=== PATIENT | female | born 1950 | race Caucasian/White ===

== ENCOUNTER 2020-06-18 14:16 | Inpatient (IN) | payer OTHER, BC ==
[2020-06-18 16:53] VITALS: BMI 23.9
[2020-06-18] MEDS ORDERED: POLYETHYL GLY 3350 17 GM/DOSE PO PRN (17:00)
[2020-06-18] MEDS: NACHLORIDE 0.45% 1,000 ML IV SCH (17:00)
[2020-06-18] MEDS ORDERED: ONDANSETRON 4 MG (ODT) TAB PO PRN (17:00)
[2020-06-18] MEDS ORDERED: LOPERAMIDE HCL 2 MG CAPSULE PO PRN (17:00)
[2020-06-18] MEDS ORDERED: ACETAMINOPHEN 325 MG TABLET PO PRN (17:00)
[2020-06-18 18:20] LABS: Absolute Lymphocytes (CBC) 0.7 K/uL (0.7-4.9); Basophils % 0.3 % (0-1.3); Hematocrit 37.3 % (36.0-45.0); Lymphocytes % 10.6 % (15.3-44.8); MPV 7.7 fL (7.6-11.3); RBC Red Blood Cell Count 3.94 M/uL (3.86-4.86)
[2020-06-18] MEDS: METRONIDAZOLE 500mg IVPB 500 MG/100 ML BAG IV SCH (18:22)
[2020-06-18 18:37] LABS: Albumin 3.5 g/dL (3.4-5.0); Bilirubin Direct 0.2 mg/dL (0-0.2); Bilirubin Total 0.6 mg/dL (0.2-1.0); Magnesium 1.9 mg/dL (1.8-2.4); Potassium 3.6 mmol/L (3.5-5.1); Protein, Total 7.3 g/dL (6.4-8.2)
[2020-06-18 18:59] LABS: Phosphorus 2.9 mg/dL (2.5-4.9); Thyroid Stimulating Hormone 1.04 uIU/mL (0.360-3.740)
--- NOTE | 2020-06-18 20:38 | RAD REPORT ---
EXAM DESCRIPTION: CTAbdomen Pelvis W Contrast - 06/18/2020 8:18 pm CLINICAL HISTORY: Abdominal pain. abdominal pain COMPARISON: No comparisons TECHNIQUE: Biphasic CT imaging of the abdomen and pelvis was performed with 100 ml non-ionic IV cont rast. All CT scans are performed using dose optimization technique as appropriate and may include automated exposure control or mA/KV adjustment according to patient size. FINDINGS: Mild linear subsegmental atelectasis is present in the left lung base. The liver, spleen, pancreas, adrenal glands and kidneys are within normal limits. No bowel obstruction, free air, free fluid or abscess. The appendix is normal. No evidence of signi ficant lymphadenopathy. Moderate lumbar degenerative changes. Significant compression fracture affects L1 with vertebroplasty cement present. This does cause moderate central canal narrowing. Small right inguinal hernia is pre sent containing fluid. Moderate fat containing left inguinal hernia. IMPRESSION: No acute intra-abdominal or pelvic finding. Moderate fluid and fat containing right inguinal hernia.
[2020-06-18] MEDS: CIPROFLOXACIN 400 MG/200 ML IVPB IV SCH (20:39)
--- NOTE | 2020-06-18 20:39 | RAD REPORT ---
EXAM DESCRIPTION: RAD - Chest Pa And Lat (2 Views) - 06/18/2020 8:28 pm CLINICAL HISTORY: abdomen pain Chest pain. COMPARISON: No comparisons FINDINGS: Mild interstitial pulmonary edema is seen. The heart is mildly to moderately enlarged in s ize. No displaced fractures. IMPRESSION: Mild CHF.
[2020-06-18] MEDS ORDERED: MECLIZINE HCL 12.5 MG TAB PO PRN (21:31)
[2020-06-19] MEDS: METRONIDAZOLE 500mg IVPB 500 MG/100 ML BAG IV SCH ×3 (01:03→18:00)
[2020-06-19] MEDS: HYDROMORPHONE HCL 1 MG/ML INJ IV PRN ×2 (07:15→14:33)
[2020-06-19] MEDS: ONDANSETRON 4 MG/2 ML VIAL IV PRN ×3 (07:54→21:35)
[2020-06-19] MEDS: INDAPAMIDE 1.25 MG TAB PO SCH (09:00)
[2020-06-19] MEDS: ENOXAPARIN 40 MG/0.4 ML SQ SCH (09:00)
[2020-06-19] MEDS: CIPROFLOXACIN 400 MG/200 ML IVPB IV SCH ×2 (09:04→21:36)
[2020-06-19] MEDS: ROSUVASTATIN 10 MG TAB PO SCH (09:04)
[2020-06-19] MEDS: PROPRANOLOL HCL 10 MG TAB PO SCH ×2 (09:05→21:34)
--- NOTE | 2020-06-19 11:33 | ECHO ---
HEIGHT: 5 ft 3 in WEIGHT: 135 lb 0 oz DATE OF STUDY: 06/19/[address]: Graham Bauman MD 2-DIMENSIONAL: YES M.MODE: YES DOPPLER: YES COLOR FLOW: YES TDS: NO PORTABLE: NO DEFINITY: NO BUBBLE STUDY: NO DIAGNOSIS: PAIN CARDIAC HISTORY: CATHERIZATION: NO SURGERY: NO PROSTHETIC VALVE: NO PACEMAKER: NO MEASUREMENTS (cm) DIASTOLIC (NORMALS) SYSTOLIC (NORMALS) IVSd 0.9 (0.6-1.2) LA Diam 2.3 (1.9-4.0) LVEF 63% LVIDd 3.7 (3.5-5.7) LVIDs 2.4 (2.0-3.5) %FS 34% LVPWd 0.9 (0.6-1.2) Ao Diam 2.8 (2.0-3.7) 2 DIMENSIONAL ASSESSMENT: RIGHT ATRIUM: NORMAL LEFT ATRIUM: NORMAL RIGHT VENTRICLE: NORMAL LEFT VENTRICLE: NORMAL TRICUSPID VALVE: NORMAL MITRAL VALVE: NORMAL PULMONIC VALVE: NORMAL AORTIC VALVE: SCLEROSIS PERICARDIAL EFFUSION: NONE AORTIC ROOT: NORMAL LEFT VENTRICULAR WALL MOTION: NORMAL DOPPLER/COLOR FLOW: MILD AORTIC AND TRICUSPID REGURGITATION. COMMENTS: NORMAL LEFT VENTRICULAR SIZE AND FUNCTION. AORITC SCLEROSIS WITH NO STENOSIS. MILD AORTIC AND TRICUSPID REGURGITATION. TECHNOLOGIST: Nehemias HANNA
[2020-06-19] MEDS: NACHLORIDE 0.45% 1,000 ML IV SCH ×2 (13:00→21:43)
--- NOTE | 2020-06-19 15:35 | CON ---
Date of Consultation: 06/19/2020 History Of Present Illness: This is the case of a 70-year-old patient, who comes to us with abdomina l pain. I talked to the family, who is the power of insole presser, who is present and she claimed this is happening every day. She holds right lower quadrant and right inguinal groin region, trying to push and then this repeated every week. At this time, she was worse. She was admitted to the hospital and a surgical consult was obtained. She denies any dysuria, hematuria, hematochezia, sara na. Denies any recent traveling out of the country. Denies any family member sick at home. She tomas s not recall her previous colonoscopy, although she was advised to have it done. Review of Systems: Ten points otherwise unremarkable. She is still having right lower quadrant pain in the area of the right groin region. Allergies: NONE. Social History: She does not smoke. She does not drink alcohol. Family History: Noncontributory. Medications: Reviewed. Physical Examination: General: The patient is awake, alert. HEENT: Pupils are equal and reactive. Anicteric. Neck: Supple. Chest: Clear. Abdomen: Soft and depressible. She has right lower quadrant and inguinal pain. This is what we saw the findings on the CAT scan with the inflammation in the right inguinal hernia. Extremities: Good capillary refill. Imaging: CAT scan of the abdomen and pelvis interpreted by Dr. Salcedo as right inguinal hernia is pre sent, containing fluid, moderate amount of fat present in both hernias. Assessment: This is a 70-year-old patient with right groin pain. She complained what is supposed to be a hernia in that region and at this time has swelling, tenderness in that region. There is some fluid in that region. I believe she has been probably pushing up in and out intestines. Right now, only not there, but the patient is still having some nausea. After discussing pros and co ns with the patient and power of insole presser since the pain is there and happening every day and is wors e at this time, they preferred to have the right inguinal hernia repair. The left side is going to b e repaired electively. The right side is the one causing trouble at this moment, so we are going to do open repair of incarcerated right inguinal hernia with possible mesh with benefits, alternatives, and risks include, but not limited to infection, bleeding, damage to adjacent structures, anesthesia complication, recurrence, ND and even . She also understands this may not relieve any symptoms. She might need more than one surgical intervention. She understands and the power of insole presser unde rstands pros and cons of use of mesh. The patient is trying to eat at this moment, although she just became nauseous. I asked her to be n.p.o. and we are going to repair that as soon as possible. SARAHY/FAUSTINO Voice ID: [id number] Report ID: [id number]
[2020-06-19 17:50] LABS: Absolute Lymphocytes (CBC) 0.5 K/uL (0.7-4.9); Basophils % 0.2 % (0-1.3); Hematocrit 35.3 % (36.0-45.0); Lymphocytes % 8.1 % (15.3-44.8); MPV 7.6 fL (7.6-11.3); RBC Red Blood Cell Count 3.74 M/uL (3.86-4.86)
[2020-06-19 18:18] LABS: Magnesium 1.9 mg/dL (1.8-2.4); Potassium 3.6 mmol/L (3.5-5.1)
[2020-06-19] MEDS: FAMOTIDINE 20 MG/2 ML VIAL IV SCH (21:34)
--- NOTE | 2020-06-19 22:03 | PN ---
Subjective: Ms. Miller who is having the same symptoms as yesterday. She has vomiting off and on . She has abdominal pain right lower quadrant off and on. Mentally, she is cognitively challenged s o the history is limited. Objective: Vital Signs: Blood pressure 91/60, temperature 96.9, pulse 83. HEENT: No JVD. No carotid bruits. Chest: Clear. Heart: Regular. Abdomen: Soft. Right lower tenderness. Hernia on the right side inguinal region, mild to moderate tenderness. Assessment And Plan: Right inguinal hernia. Right-sided abdominal pain. I suspect we need to have hernia repair to remove the possibility for pain coming from hernia, which is most likely reason for it. I do not see any signs of any acute abdominal infection, appendicitis or cholecystitis. The pat ient is clinically stable for surgery in the morning. MORGAN/MODL Voice ID: [id number] Report ID: [id number]
[2020-06-20] MEDS: METRONIDAZOLE 500mg IVPB 500 MG/100 ML BAG IV SCH ×3 (02:04→18:00)
[2020-06-20] MEDS: HYDROMORPHONE HCL 1 MG/ML INJ IV PRN (05:36)
[2020-06-20] MEDS: PROPRANOLOL HCL 10 MG TAB PO SCH ×2 (09:00→20:56)
[2020-06-20] MEDS: ENOXAPARIN 40 MG/0.4 ML SQ SCH (09:00)
[2020-06-20] MEDS: FAMOTIDINE 20 MG/2 ML VIAL IV SCH ×2 (09:06→20:57)
[2020-06-20] MEDS: CIPROFLOXACIN 400 MG/200 ML IVPB IV SCH ×2 (09:07→20:57)
[2020-06-20] MEDS ORDERED: Ringers Lactate 1,000 ML IV ONE (13:18)
[2020-06-20] MEDS ORDERED: propofoL 200 MG/20 ML VIAL IV ONE (13:36)
[2020-06-20] MEDS ORDERED: FENTANYL CITR 100 MCG/2 ML ONE (13:36)
[2020-06-20] MEDS ORDERED: LIDOCAINE 1% MPF 5 ML VIAL ONE (13:36)
[2020-06-20] MEDS ORDERED: dexAMETHasone 10 MG/ML VIAL ONE (14:01)
[2020-06-20] MEDS ORDERED: KETOROLAC 30 MG/ML INJ ONE (14:01)
[2020-06-20] MEDS ORDERED: HYDROCODONE/APAP 5/325 MG TAB PO PRN (14:05)
--- NOTE | 2020-06-20 14:07 | P.BOP ---
Preoperative diagnosis: right inguinal pain, right inguinal hernia Postoperative diagnosis: incarcerated right femoral hernia Specimen: content Findings: incarcerated right femoral hernia Anesthesia: General Implants: mesh plug Transferred to: Recovery Room Condition: Good
[2020-06-20] MEDS ORDERED: ONDANSETRON 4 MG/2 ML VIAL ONE (14:22)
[2020-06-20] MEDS: INDAPAMIDE 1.25 MG TAB PO SCH (16:48)
[2020-06-20] MEDS: ROSUVASTATIN 10 MG TAB PO SCH (16:48)
[2020-06-20] MEDS: NACHLORIDE 0.45% 1,000 ML IV SCH ×2 (16:48→23:54)
[2020-06-20 17:39] LABS: Absolute Lymphocytes (CBC) 0.3 K/uL (0.7-4.9); Basophils % 0.3 % (0-1.3); Hematocrit 34.1 % (36.0-45.0); Lymphocytes % 2.9 % (15.3-44.8); MPV 7.7 fL (7.6-11.3)
[2020-06-20 18:28] LABS: Magnesium 1.6 mg/dL (1.8-2.4); Potassium 3.5 mmol/L (3.5-5.1)
[2020-06-20 18:51] LABS: Blood Morphology Comment NOT SEEN (NOT SEEN); Platelet Estimate ADEQ; White Blood Cell Scan OK (OK)
--- NOTE | 2020-06-20 21:50 | P.PN ---
Subjective Date of Service: 06/20/20 Chief Complaint: PAIN,NAUSEA AND VOMITING DR. MONTGOMERY CALLED LATER THAT HE FOUND FEMORAL HERNIA IN THE R SIDE. THIS EXPLAINS THE SYMPTOMS OF PAIN, NAUSE AND VOMITING. FEMORAL HERNIAS ARE IN A VERY TIGHT PLACE. Review of Systems 10-point ROS is otherwise unremarkable General: Weakness Physical Examination - Vital Signs Temperature: 97.6 F Blood Pressure: 91/55 Pulse: 73 Respirations: 18 Pulse Ox (%): 93 - Physical Exam General: Mild distress HEENT: Atraumatic, PERRLA, EOMI Neck: Supple, JVD not distended Respiratory: Clear to auscultation bilaterally, Normal air movement Cardiovascular: Regular rate/rhythm, Normal S1 S2 Gastrointestinal: Tenderness (RLQ) Musculoskeletal: No tenderness Integumentary: No rashes Neurological: Normal speech, Normal tone, Normal affect Lymphatics: No axilla or inguinal lymphadenopathy - Studies Medications List Reviewed: Yes Assessment And Plan - Current Problems (Diagnosis) (1) Incarcerated femoral hernia Current Visit: Yes Status: Acute Plan: SP SURGERY DAY 0 DOING WELL. WILL DO LAB IN AM CONTINUE LOVENOX ABX DC IN AM IF STABLE.
[2020-06-20] MEDS: DIPHENHYDRAMINE 25 MG TAB/CAP PO PRN (21:53)
[2020-06-21] MEDS: METRONIDAZOLE 500mg IVPB 500 MG/100 ML BAG IV SCH ×3 (02:05→17:31)
[2020-06-21] MEDS: CIPROFLOXACIN 400 MG/200 ML IVPB IV SCH ×2 (09:05→20:30)
[2020-06-21] MEDS: ENOXAPARIN 40 MG/0.4 ML SQ SCH (09:05)
[2020-06-21] MEDS: FAMOTIDINE 20 MG/2 ML VIAL IV SCH ×2 (09:05→20:30)
[2020-06-21] MEDS: NACHLORIDE 0.45% 1,000 ML IV SCH ×3 (09:05→20:30)
[2020-06-21] MEDS: PROPRANOLOL HCL 10 MG TAB PO SCH ×2 (09:06→20:47)
[2020-06-21] MEDS: ROSUVASTATIN 10 MG TAB PO SCH (09:06)
[2020-06-21 10:28] VITALS: O2SAT 95
--- NOTE | 2020-06-21 14:09 | P.PN ---
Subjective Date of Service: 06/21/20 Chief Complaint: POST OP DAY 1 , STABLE. Subjective: Improving DR. MONTGOMERY CALLED LATER THAT HE FOUND FEMORAL HERNIA IN THE R SIDE. THIS EXPLAINS THE SYMPTOMS OF PAIN, NAUSE AND VOMITING. FEMORAL HERNIAS ARE IN A VERY TIGHT PLACE. JOYCE IS FEELING A LOT BETTER. Review of Systems 10-point ROS is otherwise unremarkable General: Weakness Physical Examination - Vital Signs Temperature: 97 F Blood Pressure: 80/64 Pulse: 64 Respirations: 18 Pulse Ox (%): 98 - Physical Exam General: Mild distress HEENT: Atraumatic, PERRLA, EOMI Neck: Supple, JVD not distended Respiratory: Clear to auscultation bilaterally, Normal air movement Cardiovascular: Regular rate/rhythm, Normal S1 S2 Gastrointestinal: Normal bowel sounds, No tenderness, Tenderness ( POST OP.) Musculoskeletal: No tenderness Integumentary: No rashes Neurological: Normal speech, Normal tone, Normal affect Lymphatics: No axilla or inguinal lymphadenopathy - Studies Medications List Reviewed: Yes Assessment And Plan - Current Problems (Diagnosis) (1) Incarcerated femoral hernia Current Visit: Yes Status: Acute Plan: SP SURGERY DAY 0 DOING WELL. WILL DO LAB IN AM CONTINUE LOVENOX ABX DC IN AM IF STABLE. SP SURGERY MILD HYPOTENSION. MILD PRERENAL ON LAB. IV FLUIDS STARTED. WILL BE BETTER BY AM
[2020-06-21 17:46] LABS: Absolute Lymphocytes (CBC) 0.7 K/uL (0.7-4.9); Basophils % 0.3 % (0-1.3); Hematocrit 32.6 % (36.0-45.0); Lymphocytes % 9.4 % (15.3-44.8); MPV 7.9 fL (7.6-11.3); RBC Red Blood Cell Count 3.43 M/uL (3.86-4.86)
[2020-06-21 17:56] LABS: Magnesium 1.5 mg/dL (1.8-2.4); Potassium 3.2 mmol/L (3.5-5.1)
[2020-06-21] MEDS: DIPHENHYDRAMINE 25 MG TAB/CAP PO PRN (20:30)
[2020-06-22] MEDS: NACHLORIDE 0.45% 1,000 ML IV SCH (00:02)
[2020-06-22] MEDS: METRONIDAZOLE 500mg IVPB 500 MG/100 ML BAG IV SCH ×2 (01:47→10:32)
[2020-06-22] MEDS: ROSUVASTATIN 10 MG TAB PO SCH (08:58)
[2020-06-22] MEDS: ENOXAPARIN 40 MG/0.4 ML SQ SCH (08:59)
[2020-06-22] MEDS: FAMOTIDINE 20 MG/2 ML VIAL IV SCH (08:59)
[2020-06-22] MEDS ORDERED: POTASSIUM CL SA 10 MEQ TAB PO SCH (09:00)
[2020-06-22] MEDS ORDERED: MAGNESIUM OXIDE 400 MG TAB PO SCH (09:00)
[2020-06-22] MEDS: PROPRANOLOL HCL 10 MG TAB PO SCH (09:00)
[2020-06-22] MEDS: CIPROFLOXACIN 400 MG/200 ML IVPB IV SCH (09:05)
[2020-06-22 12:32] VITALS: BP 114/68; TEMP 98.5
--- NOTE | 2020-06-23 08:17 | P.DS ---
Admission Date: 06/19/20 Discharge Date: 06/23/20 Disposition: ROUTINE DISCHARGE Discharge Condition: GOOD Reason for Admission: POST OP DAY 1 , STABLE. - Problems (1) Incarcerated femoral hernia Status: Acute Hospital Course: JOYCE IS DOING GOOD POST SURGERY. SHE IS ABLE TO AMBULATE, HER K AND MAG ARE LOW AND BEING REPLACEED. HER SODIUM IS MILD LOW BECAUSE OF BEING ON IND APAMIDE FOR MENIERE'S. I WILL FU ON THIS . SHE HAS NO SYMPTOMS FROM IT. SHE HAD FEMORAL HERNIA THAT WAS SYMPTOMATIC WITH PAIN, NAUSEA AND VOMITING AND NOW IT HAS BEEN TAKEN CARE OFF. Vital Signs/Physical Exam: Temp Pulse Resp BP Pulse Ox 98.5 F 77 20 114/68 94 06/22/20 12:00 06/22/20 12:00 06/22/20 12:00 06/22/20 12:00 06/22/20 12:00 Laboratory Data at Discharge: WBC Cancelled 06/22/20 17:24 Hgb Cancelled 06/22/20 17:24 Hct Cancelled 06/22/20 17:24 Plt Count Cancelled 06/22/20 17:24 APTT 29.3 SECONDS (24.3-36.9) 06/18/20 18:00 Sodium Cancelled 06/22/20 17:24 Potassium Cancelled 06/22/20 17:24 BUN Cancelled 06/22/20 17:24 Creatinine Cancelled 06/22/20 17:24 Glucose Cancelled 06/22/20 17:24 Phosphorus 2.9 mg/dL (2.5-4.9) 06/18/20 18:00 Magnesium Cancelled 06/22/20 17:24 Total Bilirubin 0.6 mg/dL (0.2-1.0) 06/18/20 18:00 AST 14 U/L (15-37) L 06/18/20 18:00 ALT 22 U/L (12-78) 06/18/20 18:00 Alkaline Phosphatase 76 U/L (45-117) 06/18/20 18:00 Home Medications: Indapamide [Lozol] 2.5 mg PO DAILY 06/18/20 Meclizine HCl 25 mg PO TID PRN 06/18/20 Propranolol [Inderal*] 10 mg PO BID 06/18/20 Rosuvastatin [Crestor*] 10 mg PO DAILY 06/18/20 Potassium Oral Tab [Klor-Con 10 mEq Tab*] 10 meq PO DAILY #90 tab 06/22/20 New Medications: Potassium Oral Tab [Klor-Con 10 mEq Tab*] 10 meq PO DAILY #90 tab Followup: Graham Bauman MD [Primary Care Provider] - Josue Still MD [ACTIVE - CAN ADMIT] -
[2020-06-23 11:33] LABS: Vitamin D 1,25-Dihydroxy Total 65 pg/mL (18-72); Vitamin D,1,25-OH2, D2 <8 pg/mL
--- NOTE | 2020-06-25 23:46 | OP ---
Date of Procedure: 06/25/2020 Surgeon: Josue Still MD Preoperative Diagnoses: Right inguinal pain, right inguinal hernia. Postoperative Diagnosis: Incarcerated right femoral hernia. Specimen: Hernia content. Finding: Incarcerated omentum in the right femoral hernia. Anesthesia: General plus local. Implant: Mesh plug. Indications: This is a case of a 70-year-old patient who comes to us with a right inguinal fullness for which the CAT scan shows a hernia in that region. She also has a hernia on the left side, but it is small. The one causing the pain and discomfort and incarceration is in the right side. So since patient comes, admitted to the hospital, we are going to address that issue first. The patient was fully explained the benefits and risks of repair of right inguinal hernia with possible mesh with giovany efits, alternatives, and risks including, but not limited to infection, bleeding, damage to adjacent structures, anesthesia complication, recurrence, UT, and even . She also understands this may n ot relieve the symptoms. She might need more than one surgical intervention. She understands the ch ance of recurrence and the chance of chronic pain. She understands that in the future she has to be careful with lifting and also whenever she is medically more stable, address the hernia on the left s tito before it becomes this advanced. She understood. She wants to have it done, the right inguinal hernia during this admission, so she was booked in OR. Procedure In Detail: The patient was brought to the operating room, placed in supine position. Anes thesia was done without complication. Abdominal area was prepped and draped in sterile fashion. Loc al anesthesia was applied followed by sharp incision of skin in the right inguinal region. Incision was carried down to fascia, which was opened under direct vision. External oblique aponeurosis was i dentified, opened in direction of the fiber. We noticed that the patient has a femoral hernia. The inguinal canal looks okay. The deep inguinal ring looks okay, but the patient has large amount of fa tty tissue coming through the femoral very narrow canal. This hernia is incarcerated, cannot be redu sadie, so we opened the hernia sac to make sure that the femoral vessels were protected at all times an d then ligated the content with Jayashree clamps and 0 chromic ligation. At that moment, then this allow ed us to introduce the rest of the content down into the abdominal canal making sure that is viable a nd making sure there is no bleeding. At that moment, I proceeded to get a hernia plug mesh and was u sed to completely fill the defect without encroaching the femoral veins. This was placed in the femo ral canal and this was secured in place with VersaTack. Once again, care was taken to protect the bl ood vessels in that region. At that moment, we proceeded then to reconstruct the superficial inguina l ring making sure the ilioinguinal nerve and iliohypogastric nerve are protected at all times and no t enclosed in the stitch. External oblique aponeurosis was closed with Prolene. Lyudmila fascia was c losed with 3-0 chromic and then skin with horacio. Sponge count and instrument counts were correct. The patient tolerated the procedure well. The patient was sent to Recovery in stable condition. SARAHY/FAUSTINO Voice ID: [id number] Report ID: [id number]
== END 2020-06-22 15:10 | disposition home or self-care (01) | DRG 352 ==
LOC: ER 14:16 → 2ND 15:31 → OBSVTOIN 06-19 22:57
PROVIDERS: ADMIT Internal Medicine; ATTEND Internal Medicine
PROC: 0YU70JZ Supplement Right Femoral Region with Synthetic Substitute, Open Approach (ICD-10-PCS; principal; 2020-06-20 14:00)
DX: K41.30 Unilateral femoral hernia, with obstruction, without gangrene, not specified as recurrent (principal); I10 Essential (primary) hypertension; E78.5 Hyperlipidemia, unspecified; I95.9 Hypotension, unspecified; Z79.899 Other long term (current) drug therapy; Z20.822 Contact with and (suspected) exposure to COVID-19
CPT/HCPCS: 36415; 71046; 74177; 80048; 80076; 82607; 82652; 83735; 84100; 84443; 85025; 85730; 87040; 88302; 93306; G0378; J0744; J1100; J1170; J1650; J2405; J2704; J3010; J7120; Q9967; U0003

== ENCOUNTER 2022-09-04 09:15 | Day surgery (SDC) | payer OTHER, BC ==
[2022-09-04] MEDS ORDERED: Ringers Lactate 1,000 ML IV ONE (09:55)
[2022-09-04] MEDS ORDERED: propofoL 200 MG/20 ML VIAL IV ONE (10:49)
[2022-09-04] MEDS ORDERED: MIDAZOLAM HCL 2 MG/2 ML INJ ONE (10:49)
[2022-09-04] MEDS ORDERED: FENTANYL CITR 100 MCG/2 ML ONE (10:49)
[2022-09-04] MEDS ORDERED: ONDANSETRON 4 MG/2 ML VIAL ONE (10:50)
[2022-09-04] MEDS ORDERED: LIDOCAINE 2% MPF 5 ML VIAL ONE (10:50)
[2022-09-04] MEDS ORDERED: LIDOCAINE HCL/EPINEPHRINE 20 ML MDV ONE (11:36)
--- NOTE | 2022-09-04 14:07 | P.OP ---
Coal Sample Tester: NONE,NONE Preoperative diagnosis: Squamous cell carcinoma nose; NUB skin of right medial canthus Postoperative diagnosis: Squamous cell carcinoma nose; basal cell carcinoma right medial canthus Primary procedure: Excision malignant lesion nose, 1.5 x 1.4 cm Secondary procedure: Excision malignant lesion right medial canthus 2.0 x 0.8 cm Other procedure(s): Full-thickness skin graft from left cheek to nose Anesthesia: General via LMA Estimated blood loss: 10 mL Specimen: nose, new deep margin nose, R medial canthus, R medial canthus new 6ocl Findings: final margins all negative Operative Technique: After adequate plane of anesthesia, the nose, left preauricular region and right medial canthus were cleaned with alcohol and injected with local anesthetic. A total of 6 mL of 1% lidocaine with epinephrine was used. There is a round pearly firm lesion adjacent to the medial canthus on the right side, clinically suspicious for basal cell carcinoma. A 15 blade scalpel was used to incise around the clinically suspicious lesion at the right medial canthus with a 2 mm gross margin. A 15 x 8 mm fragment of skin was elevated sharply. A suture was placed at the superiormost aspect, marking 12:00 and sent to pathology for frozen section. Bovie electrocautery and direct pressure were applied to the site to aid in hemostasis. A 15 blade scalpel was used to incise through the skin of the tip of the nose around the clinically apparent lesion with a margin of 2 to 3 mm grossly. Full-thickness skin was sharply elevated until the lesion was completely removed. A suture was placed at the superiormost aspect, marking 12:00 and sent to pathology for frozen section. Bovie electrocautery and direct pressure were applied to the site to aid in hemostasis. Intraoperative consultation with the pathologist confirmed the right medial canthus lesion was a basal cell carcinoma but there was tumor cells persistent at the 6:00/inferior margin. A new 6:00 margin was extirpated, marked with a suture and sent to pathology for frozen section. This new margin was negative. The defect was now 2.0 x 0.8 cm and was closed primarily with 5-0 fast-absorbing gut using simple interrupted sutures. Intraoperative consultation with the pathologist confirmed the nasal tip was a squamous cell carcinoma with negative peripheral margin but deep positive margin. Bovie electrocautery was used to incise through the soft tissues at the existing peripheral margin and the soft tissue was elevated from the perichondrium. Cartilage did not appear to be grossly involved. The true margin was marked with surgical marker and sent to pathology for frozen section analysis. The new margin was negative. The defect now measured 1.5 x 1.4 cm and encompassed the full thickness of skin and soft tissue but did not involve the perichondrium. A 4 by the 1.8 cm fusiform graft was designed in the left preauricular crease. A scalpel and Bovie electrocautery was used to elevate full-thickness skin graft from this region. The defect was closed in a layered fashion using 4-0 Vicryl and fast-absorbing gut sutures after hemostasis with electrocautery was confirmed. The skin graft was then trimmed to circular size and applied to the nasal defect using 4-0 silk sutures. The sutures were then used to secure a Xeroform bolster over the skin graft to aid in adherence and protection of the graft during the early healing time. The skin was then cleaned and dried. Patient was returned to care of anesthesia for awakening extubation in the operating room which proceeded without difficulty. Complications: None Implants: none Fluids & blood products: See anesthesia record Transferred to: Recovery Room Condition: Good
--- NOTE | 2022-09-04 14:44 | EKG ---
Test Date: 2022-09-04 Test Time: 09:55:30 Set Up Mechanic [employer] Machine: TODD MEASUREMENT RESULTS: Intervals: Rate: 63 NJ: 138 QRSD: 102 QT: 400 QTc: 409 [place]: P: -11 NJ: 138 QRS: -38 T: 12 INTERPRETIVE STATEMENTS: Normal sinus rhythm Left axis deviation Possible Anterolateral infarct, age undetermined Abnormal ECG No previous ECG available for comparison Electronically Signed On 09-04-22 14:44:08 CDT by Av Holley
[2022-09-04 14:47] VITALS: BP 105/66; TEMP 97.7; O2SAT 95
[2022-09-04] MEDS ORDERED: ACETAMINOPHEN 325 MG TABLET ONE (14:58)
== END 2022-09-04 15:25 | disposition home or self-care (01) ==
LOC: OR 09:15
PROVIDERS: ATTEND Otolaryngology
PROC: 0HB1XZZ Excision of Face Skin, External Approach (ICD-10-PCS; 2022-09-04)
PROC: 0HR1X73 Replacement of Face Skin with Autologous Tissue Substitute, Full Thickness, External Approach (ICD-10-PCS; principal; 2022-09-04 11:00)
DX: C44.311 Basal cell carcinoma of skin of nose (principal)
CPT/HCPCS: 11642; 15260; 93005; 88331; 88332; 88305; J2704; J2001; J3010; J2405; J7120; J2250

== ENCOUNTER 2022-10-21 08:50 | Day surgery (SDC) | payer OTHER, BC ==
[2022-10-21] MEDS ORDERED: Zoledronic Acid/Mannitol/Water 5 MG/100 ML INFUS.BOT IV ONE (09:00)
[2022-10-21] MEDS ORDERED: NA CHLORIDE 0.9% 50 ML ONE (09:29)
[2022-10-21 09:40] VITALS: BP 114/77; TEMP 97.1; O2SAT 93; BMI 22.6
== END 2022-10-21 10:25 | disposition home or self-care (01) ==
LOC: DS 08:50
PROVIDERS: ATTEND Internal Medicine
DX: M81.0 Age-related osteoporosis without current pathological fracture (principal); R13.10 Dysphagia, unspecified
CPT/HCPCS: 96365; J3489

== ENCOUNTER 2023-11-11 15:17 | Observation (INO) | payer OTHER, BC ==
[2023-11-11 16:11] VITALS: BMI 26.7
[2023-11-11 16:45] LABS: Absolute Eosinophils 0.1 K/uL (0-0.5); Absolute Lymphocytes (CBC) 0.6 K/uL (0.7-4.9); Absolute Monocytes 0.5 K/uL (0.1-1.3); Absolute Neutrophil 3.9 K/uL (1.8-8.0); Basophils % 0.8 % (0-1.3); Hematocrit 30.8 % (36.0-45.0); Hemoglobin 10.3 g/dL (12.0-15.0); Lymphocytes % 11.4 % (15.3-44.8); MCH 32.5 pg (27.0-35.0); MCHC 33.5 g/dL (32.0-36.0); MCV 96.8 fL (80-100); MPV 6.7 fL (7.6-11.3); Monocytes % 10.3 % (3.3-12.3); Neutrophils % 75.5 % (41.7-73.7); Nucleated Red Blood Cells % 0.1 % (0-0); Platelets 295 thou/uL (152-406); RBC Red Blood Cell Count 3.18 M/uL (3.86-4.86); Red Cell Distribution Width 15.1 % (12.1-15.2)
[2023-11-11 16:49] LABS: D-Dimer 0.926 FEUug/mL (0-0.500); PT Prothrombin Time 14.2 SECONDS (9.4-12.5); Protime INR 1.28
[2023-11-11 16:50] LABS: Arterial Blood Carboxyhemoglob 1.9 % (0-1.5); Blood Gas Oxyhemoglobin 83.9 % (94-97); Blood Gas THB 10.6 g/dl (12-18); Blood O2 Saturation 86.6 % (92-98.5)
[2023-11-11] MEDS: PNEUMOCOCCAL VACCINE 0.5 ML IMVAC ONE (17:19)
[2023-11-11 17:22] LABS: SARS-CoV-2 Antigen CONTROL BLUE LINE VIS/BG OK; SARS-CoV-2 Antigen Rapid Res Negative (Negative)
[2023-11-11 17:54] LABS: Albumin 2.8 g/dL (3.4-5.0); Albumin/Globulin Ratio 0.8 (1.1-1.8); Anion Gap 9.9 mEq/L (5.0-15.0); Bilirubin Direct 0.3 mg/dL (0-0.2); Bilirubin Indirect, Calculated 0.4 mg/dL (0.2-0.8); Bilirubin Total 0.7 mg/dL (0.2-1.0); Globulin 3.3 g/dL (2.3-3.5); Magnesium 1.7 mg/dL (1.6-2.4); Phosphorus 3.2 mg/dL (2.5-4.9); Potassium 2.9 mEq/L (3.5-5.1); Protein, Total 6.1 g/dL (6.4-8.2); Thyroid Stimulating Hormone 1.78 uIU/mL (0.358-3.740)
[2023-11-11] MEDS ORDERED: ONDANSETRON 4 MG/2 ML VIAL IV PRN (18:00)
[2023-11-11] MEDS ORDERED: ONDANSETRON 4 MG (ODT) TAB PO PRN (18:00)
[2023-11-11] MEDS ORDERED: DIPHENHYDRAMINE 25 MG TAB/CAP PO PRN (18:00)
[2023-11-11] MEDS ORDERED: POLYETHYL GLY 3350 17 GM/DOSE PO PRN (18:00)
[2023-11-11] MEDS ORDERED: LOPERAMIDE HCL 2 MG CAPSULE PO PRN (18:00)
[2023-11-11] MEDS ORDERED: ACETAMINOPHEN 325 MG TABLET PO PRN (18:00)
[2023-11-11] MEDS: NACHLORIDE 0.45% 1,000 ML IV SCH (18:12)
[2023-11-11] MEDS: KCL 20 MEQ/100 mL IVPB 20 MEQ/100 ML BAG IV SCH (18:13)
--- NOTE | 2023-11-11 19:24 | RAD REPORT ---
EXAM DESCRIPTION: CT - Chest For Pe Angio - 11/11/2023 7:03 pm CLINICAL HISTORY: Chest pain. Merna- Dyspnea COMPARISON: No comparisons TECHNIQUE: CT angiogram of the pulmonary arteries was performed with MIP. All CT scans are performed using dose optimization technique as appropriate and may include automated exposure control or mA/KV adjustment according to patient size. FINDINGS: No evidence of pulmonary thromboembolism. No acute aortic finding demonstrated. Mild bilateral alveolar opacities probably represent pulmonary edema. Cardiac size is moderately enla rged. No significant pericardial or pleural fluid. No concerning bony finding. IMPRESSION: No evidence of pulmonary thromboembolism. Possible mild CHF.
--- NOTE | 2023-11-11 19:25 | RAD REPORT ---
EXAM DESCRIPTION: CTAbdomen Pelvis W Contrast - 11/11/2023 7:04 pm CLINICAL HISTORY: Abdominal pain. Merna- Dyspnea COMPARISON: Abdomen Pelvis W Contrast dated 06/18/2020 TECHNIQUE: Biphasic CT imaging of the abdomen and pelvis was performed with 100 ml non-ionic IV cont rast. All CT scans are performed using dose optimization technique as appropriate and may include automated exposure control or mA/KV adjustment according to patient size. FINDINGS: The lung bases are clear.Trace right pleural effusion The liver, spleen, pancreas, adrenal glands and kidneys are within normal limits. No bowel obstruction, free air, free fluid or abscess. Moderate stool burden. The appendix is not tito ntified as a discrete structure, however, no secondary findings of appendicitis are identified. No evidence of significant lymphadenopathy. Mild lower lumbar degenerative changes. IMPRESSION: No acute intra-abdominal or pelvic finding.
[2023-11-11] MEDS ORDERED: MECLIZINE HCL 12.5 MG TAB PO PRN (21:37)
[2023-11-11] MEDS ORDERED: FUROSEMIDE 100 MG in NA CHLORIDE 0.9% 90 ML IV SCH (22:00)
[2023-11-11 23:48] VITALS: O2SAT 95
[2023-11-12 02:49] LABS: Sqamous Epithelial <5 /HPF (None Seen); Urine Bacteria None Seen /HPF (<20); Urine Bilirubin NEGATIVE (Negative); Urine Culture Reflex Order REFLEXED; Urine Glucose NEGATIVE (Negative); Urine Microscopic Reflex YN ORDER UMIC; Urine Mucus Slight /HPF (None Seen); Urine Nitrite NEGATIVE (Negative); Urine RBC <5 /HPF (None Seen); Urine Urobilinogen Normal (Normal)
[2023-11-12 03:28] LABS: Specific Gravity 1.035 (1.005-1.030); Urine Clarity Clear (Clear)
[2023-11-12 03:29] LABS: Urine Blood Negative (Negative); Urine Ketones 1+ (Negative); Urine Protein NEGATIVE (Negative)
[2023-11-12 03:31] LABS: Urine Color Light-Yellow (Yellow)
[2023-11-12 05:56] LABS: Absolute Basophils 0.1 K/uL (0-0.5); Absolute Eosinophils 0.2 K/uL (0-0.5); Absolute Lymphocytes (CBC) 0.5 K/uL (0.7-4.9); Absolute Monocytes 0.7 K/uL (0.1-1.3); Absolute Neutrophil 4.8 K/uL (1.8-8.0); Basophils % 0.8 % (0-1.3); Eosinophils % 2.8 % (0-4.4); Hematocrit 29.7 % (36.0-45.0); MCH 32.7 pg (27.0-35.0); MCHC 33.5 g/dL (32.0-36.0); MCV 97.4 fL (80-100); Monocytes % 11.4 % (3.3-12.3); Nucleated Red Blood Cells % 0.1 % (0-0); Platelets 265 thou/uL (152-406); RBC Red Blood Cell Count 3.05 M/uL (3.86-4.86); Red Cell Distribution Width 14.6 % (12.1-15.2)
[2023-11-12 06:19] LABS: Anion Gap 9.6 mEq/L (5.0-15.0); Magnesium 1.6 mg/dL (1.6-2.4); Potassium 3.6 mEq/L (3.5-5.1)
[2023-11-12] MEDS: ROSUVASTATIN 10 MG TAB PO SCH (09:55)
[2023-11-12] MEDS: MAGNESIUM SULFATE 1 gm IVPB 1 GM/100 ML BAG IV ONE (09:55)
--- NOTE | 2023-11-12 14:44 | ECHO ---
HEIGHT: 5 ft 2 in WEIGHT: 146 lb 6.4 oz DATE OF STUDY: 11/12/[address]: Graham Bauman MD 2-DIMENSIONAL: YES M.MODE: YES DOPPLER: YES COLOR FLOW: YES TDS: PORTABLE: YES DEFINITY: BUBBLE STUDY: DIAGNOSIS: EDEMA/ DYSPNEA CARDIAC HISTORY: CATHERIZATION: SURGERY: PROSTHETIC VALVE: PACEMAKER: MEASUREMENTS (cm) DIASTOLIC (NORMALS) SYSTOLIC (NORMALS) IVSd 0.8 (0.6-1.2) LA Diam (1.9-4.0) LVEF 60-65% LVIDd 3.2 (3.5-5.7) LVIDs 2.2 (2.0-3.5) %FS 31% LVPWd 0.9 (0.6-1.2) Ao Diam 3.1 (2.0-3.7) 2 DIMENSIONAL ASSESSMENT: RIGHT ATRIUM: NORMAL LEFT ATRIUM: NORMAL RIGHT VENTRICLE: MODERATE DILATED LEFT VENTRICLE: NORMAL TRICUSPID VALVE: MILD TRICUSPID REGURGITATION MITRAL VALVE: NORMAL PULMONIC VALVE: NORMAL AORTIC VALVE: MODERATE AORTIC STENOSIS, TRACE AORTIC REGURGITATION PERICARDIAL EFFUSION: NONE AORTIC ROOT: NORMAL LEFT VENTRICULAR WALL MOTION: NORMAL DOPPLER/COLOR FLOW: TRICUSPID REGURGITATION COMMENTS: 1. NORMAL LEFT VENTRICULAR SYSTOLIC FUNCTION, EJECTION FRACTION 60-65%, NORMAL WALL MOTION 2. GRADE I DIASTOLIC DYSFUNCTION 3. MODERATE DILATED RIGHT VENTRICLE WITH FLATTENED SEPTUM WHICH MIGHT INDICATE (PRESSURE OVERLOAD). 4. MODERATE PULMONARY HYPERTENSION (RIGHT VENTRICULAR SYSTOLIC PRESSURE 50-55 mmHg) 5. MODERATE AORTIC VALVE STENOSIS (AORTIC VALVE AREA 1.2 CENTIMETERS SQUARED, MEAN GRADIENT 28 mmHg) TECHNOLOGIST: ERIC FREIRE [facility]
[2023-11-12 20:46] VITALS: BP 107/76; TEMP 97.8
[2023-11-12] MEDS ORDERED: TRAZODONE 50 MG TABLET PO SCH (21:00)
[2023-11-12] MEDS ORDERED: ARIPiprazole 5 MG TAB PO SCH (21:00)
--- NOTE | 2023-11-13 08:27 | P.DS ---
Admission Date: 11/11/23 Discharge Date: 11/13/23 Disposition: HOSPICE-MEDICAL FACILITY Discharge Condition: SERIOUS Brief History of Present Illness: JOYCE IS GENETICALLY MENTALLY CHALLLANGED LADY WHO IS DECLINING OVER A FEW MONTHS. SHE HAS BEEN SHORT OF BREATH, FALLING OFTEN AND GETTING MORE CONFUSED. SHE CAN'T WALK MORE THAN A FEW STEPS NOW. ON FURTHER EVALUATION AT [facility] I FOUND THAT SHE HAD HYPONATREMIA, CHF AND HYPERCAPNEIC RESPIRATORY FAILURE. SHE IS NOT A SMOKER. I SUSPECT THE REASON FOR HYPERCAPNEA IS GRADUAL MUSCLE WEAKNESS FROM DECONDITIONING. SHE HAS MPOA AND DNR STATUS. WE DISCUSSED COMFORT CARE AND FAMILY DECIDED TO PLACE HER IN [facility]. I AGREE. Vital Signs/Physical Exam: Temp Pulse Resp BP Pulse Ox 97.8 F 87 15 107/76 96 11/12/23 20:00 11/12/23 20:00 11/12/23 20:00 11/12/23 20:00 11/12/23 20:00 General: Alert, Oriented x2, Moderate distress Neck: Supple Respiratory: Diminished Cardiovascular: Normal S1 S2, Edema External genitalia: Edema Laboratory Data at Discharge: WBC 6.30 thou/uL (4.3-10.9) 11/12/23 05:34 Hgb 10.0 g/dL (12.0-15.0) L 11/12/23 05:34 Hct 29.7 % (36.0-45.0) L 11/12/23 05:34 Plt Count 265 thou/uL (152-406) 11/12/23 05:34 PT 14.2 SECONDS (9.4-12.5) H 11/11/23 16:30 INR 1.28 11/11/23 16:30 Sodium 127 mEq/L (136-145) L 11/12/23 05:34 Potassium 3.6 mEq/L (3.5-5.1) D 11/12/23 05:34 BUN 8 mg/dL (7-18) 11/12/23 05:34 Creatinine 0.68 mg/dL (0.55-1.02) 11/12/23 05:34 Glucose 99 mg/dL (74-106) 11/12/23 05:34 Phosphorus 3.2 mg/dL (2.5-4.9) 11/11/23 16:30 Magnesium 1.6 mg/dL (1.6-2.4) 11/12/23 05:34 Total Bilirubin 0.7 mg/dL (0.2-1.0) 11/11/23 16:30 AST 20 U/L (15-37) 11/11/23 16:30 ALT 17 U/L (13-56) 11/11/23 16:30 Alkaline Phosphatase 71 U/L (45-117) 11/11/23 16:30 Home Medications: Meclizine HCl 25 mg PO TID PRN 06/18/20 Rosuvastatin [Crestor*] 10 mg PO DAILY 06/18/20 Potassium Oral Tab [Klor-Con 10 mEq Tab*] 10 meq PO DAILY #90 tab 06/22/20 Aripiprazole [Abilify] 5 mg PO BEDTIME 11/11/23 Trazodone HCl 50 mg PO BEDTIME 11/11/23 Followup: Graham Bauman MD [Primary Care Provider] - 1-2 Weeks
== END 2023-11-12 20:45 | disposition hospice, inpatient (51) ==
LOC: 2ND 15:19
PROVIDERS: ADMIT Internal Medicine; ATTEND Internal Medicine
DX: J96.92 Respiratory failure, unspecified with hypercapnia (principal); R41.0 Disorientation, unspecified; E87.1 Hypo-osmolality and hyponatremia; M62.81 Muscle weakness (generalized); I50.9 Heart failure, unspecified; I10 Essential (primary) hypertension; E78.5 Hyperlipidemia, unspecified; M81.0 Age-related osteoporosis without current pathological fracture; Z91.81 History of falling; Z11.52 Encounter for screening for COVID-19
CPT/HCPCS: 93306; 87088; 85025 ×2; 81001; 87086; 80048 ×2; 36415 ×2; 83735 ×2; 84100; 85610; 85379; 80076; 82652; 84443; 82607; 83880; 71275; 74177; 82805; 87811; 36600; Q9967; J3480 ×2; J3475; G0378; G0379

== ENCOUNTER 2024-08-12 22:17 | Inpatient (IN) | payer OTHER, BC ==
[2024-08-12] MEDS ORDERED: FENTANYL CITR 100 MCG/2 ML ONE (23:08)
[2024-08-12 23:20] LABS: Absolute Basophils 0.1 K/uL (0-0.5); Absolute Eosinophils 0.3 K/uL (0-0.5); Absolute Lymphocytes (CBC) 1.4 K/uL (0.7-4.9); Absolute Monocytes 0.6 K/uL (0.1-1.3); Basophils % 0.9 % (0-1.3); Eosinophils % 4.5 % (0-4.4); Hematocrit 27.6 % (36.0-45.0); Hemoglobin 9.5 g/dL (12.0-15.0); Lymphocytes % 22.6 % (15.3-44.8); MCHC 34.3 g/dL (32.0-36.0); MCV 93.3 fL (80-100); MPV 7.3 fL (7.6-11.3); Monocytes % 9.5 % (3.3-12.3); Neutrophils % 62.5 % (41.7-73.7); Platelets 283 thou/uL (152-406); RBC Red Blood Cell Count 2.95 M/uL (3.86-4.86); Red Cell Distribution Width 15.2 % (12.1-15.2)
[2024-08-12 23:24] LABS: PT Prothrombin Time 11.5 SECONDS (10-13.0); PTT, Activated Partial Thromb 27.2 SECONDS (27.2-37.4); Protime INR 1.01
[2024-08-12 23:34] LABS: Anion Gap 8.1 mEq/L (5.0-15.0); Magnesium 1.7 mg/dL (1.6-2.4); Potassium 3.1 mEq/L (3.5-5.1); Troponin High Sensitivity 12.6 pg/mL (<58.9)
[2024-08-13] MEDS ORDERED: POTASSIUM 25 MEQ EFFERV TAB ONE (00:10)
--- NOTE | 2024-08-13 01:11 | RAD REPORT ---
EXAM DESCRIPTION: Head C Spine Mpr Wo Con RadLex: CT HEAD AND CERVICAL SPINE WITHOUT CONTRAST CLINICAL HISTORY: 74 years Female; fall; Bed Name: 16 TECHNIQUE: Noncontrast CT head and cervical spine All CT scans at this facility use dose modulation, iterative reconstruction, and/or weight based dosi ng when appropriate to reduce radiation dose to as low as reasonably achievable. COMPARISON: None. FINDINGS: BRAIN: Parenchyma: No acute hemorrhage, large territorial infarction, or mass effect. Moderate global volume loss. Ventricles and extra-axial spaces: Appropriate for age and degree of volume loss. Visualized paranasal sinuses: Clear. Mastoid air cells: Clear. Bones: No acute focal abnormality. Additional comment: Bilateral lens replacement. Intracranial atherosclerosis. CERVICAL SPINE: Alignment: 2 mm anterolisthesis at C3-C4 and C4-C5. Vertebrae: Vertebral bodies and posterior elements are intact without acute fracture. Multilevel dege nerative changes. Extra-vertebral soft tissues: Normal. Additional comment: None. IMPRESSION: 1. No acute intracranial findings. 2. No acute fracture or subluxation of the cervical spine. Electronically signed by: Vida Pinto MD 08/13/2024 01:04 AM CDT TYG Due to temporary technical issues with the PACS/Nusirt reporting system, reports are being marcelina d by the in-house radiologist without review as a courtesy to ensure prompt reporting the interpreting radiologist is fully responsible for the content of the report. Transcribed Date/Time: 08/13/2024 1:11 AM
--- NOTE | 2024-08-13 01:11 | RAD REPORT ---
EXAM: CT Chest, Abdomen and Pelvis With Intravenous Contrast CLINICAL HISTORY: The patient is 74 years old and is Female; FALL TECHNIQUE: Axial computed tomography images of the chest, abdomen and pelvis with intravenous contrast. Sagi ttal and coronal reformatted images were created and reviewed. This CT exam was performed using one or more of the following dose reduction techniques: automated exposure control, adjustment of t he mA and/or kV according to patient size, and/or use of iterative reconstruction technique. COMPARISON: November 11, 2023 FINDINGS: CHEST: LUNGS: Scattered areas of atelectasis throughout the lungs are noted. There is no lobar consolida tion. The tracheobronchial tree is patent. PLEURAL SPACE: Unremarkable. No significant effusion. No pneumothorax. HEART: No cardiomegaly. No pericardial effusion. ABDOMEN: LIVER: The liver is homogeneous. GALLBLADDER AND BILE DUCTS: The gallbladder is distended. No calcified gallstones are seen. PANCREAS: The pancreas is mildly atrophic. SPLEEN: Unremarkable. ADRENALS: Unremarkable. No mass. KIDNEYS AND URETERS: Mild bilateral hydroureteronephrosis is noted. No obstructing calculus is se en. The kidneys enhance symmetrically without stranding. STOMACH AND BOWEL: The stomach is decompressed. The small bowel is normal in caliber. A large rec ifeanyi stool ball with surrounding perirectal stranding is present. A moderate amount stool is noted throughout the remainder of the colon. PELVIS: APPENDIX: No findings to suggest acute appendicitis. BLADDER: The bladder is significantly distended. REPRODUCTIVE: Unremarkable as visualized. CHEST, ABDOMEN and PELVIS: INTRAPERITONEAL SPACE: Unremarkable. No significant fluid collection. No free air. BONES/JOINTS: Evidence of a healing mid sternal body fracture is noted. A fracture involving the superior endplate of L5 with [id number] height loss is present. Sclerosis at the fracture site is noted. There is no retropulsion. Evidence of vertebroplasty of L1 is noted with a chronic fra cture present. There is no other acute fracture of the visualized axial and appendicular skeleton. The vertebral body heights and alignment are otherwise maintained. SOFT TISSUES: Unremarkable. VASCULATURE: Unremarkable. No aortic aneurysm. LYMPH NODES: Unremarkable. No enlarged lymph nodes. IMPRESSION: 1. No evidence of solid organ injury on this contrasted CT of the chest, abdomen, and pelvis. 2. Age-indeterminate compression fracture of L5, likely subacute. Correlation with point tenderness is recommended. 3. Significantly distended bladder with resultant bilateral hydroureteronephrosis. Findings may be secondary to chronic bladder outlet obstruction. 4. Large rectal stool ball with perirectal stranding may be secondary to fecal impaction and mild p roctitis. Electronically signed by: Michaela Anderson MD 08/13/2024 12:51 AM CDT RP Due to temporary technical issues with the PACS/Sefaira reporting system, reports are being marcelina d by the in-house radiologist without review as a courtesy to ensure prompt reporting the interpreting radiologist is fully responsible for the content of the report. Transcribed Date/Time: 08/13/2024 1:11 AM
[2024-08-13] MEDS ORDERED: BISACODYL 10 MG RECTAL SUPP ONE (01:52)
[2024-08-13] MEDS ORDERED: BISACODYL E.C. 5 MG TAB PO ONE (01:52)
[2024-08-13] MEDS ORDERED: LACTULOSE 20 GM/30 ML UCUP ONE (01:53)
--- NOTE | 2024-08-13 02:55 | EDPHYS ---
Physician Documentation [facility] Name: Ethel Vazquez Age: 74 yrs Sex: Female : 1950 Arrival Date: 08/12/2024 Time: :17 Bed 16 Private MD: ED Physician Renan Levy HPI: 08/12 22:50 This 74 yrs old Female presents to ER via EMS with complaints of Fall Injury. cp 22:50 Details of fall: The patient fell from an upright position, while walking, and struck a cp tile surface. Onset: The symptoms/episode began/occurred today. Associated injuries: The patient sustained injury to the low back, bruising and hematoma noted right low back. Historical: - Allergies: 22:48 No Known Allergies; rg5 - PMHx: 22:22 Hypertensive disorder; Anxiety; autism; rg5 - Immunization history:: Adult Immunizations unknown. - Infectious Disease History:: Denies. - Immunization history: Last tetanus immunization: unknown. - Social history:: Smoking status: Patient denies any tobacco usage or history of. ROS: 22:55 Constitutional: Negative for chills, fever, cp 22:55 Cardiovascular: Negative for chest pain, cp 22:55 Respiratory: Negative for cough, shortness of breath, wheezing, 22:55 Abdomen/GI: Negative for vomiting, diarrhea, constipation, 22:55 Back: Positive for pain at rest, pain with movement, of the right low back, 22:55 Neuro: Negative for altered mental status, loss of consciousness, cp 22:55 All other systems are negative, cp Exam: 23:00 Constitutional: The patient appears in no acute distress, alert, awake, cp non-diaphoretic, non-toxic, well developed, well nourished, 23:00 Head/Face: Normocephalic, atraumatic. cp 23:00 Eyes: Periorbital structures: appear normal, Pupils: equal, round, and reactive to light and accomodation, Extraocular movements: intact throughout, Conjunctiva: normal, no exudate, no injection, Lids and lashes: appear normal, bilaterally, 23:00 ENT: External ear(s): are unremarkable, Nose: is normal, Mouth: Lips: moist, Oral mucosa: moist, Posterior pharynx: Airway: no evidence of obstruction, patent, 23:00 Neck: C-spine: vertebral tenderness, is not appreciated, crepitus, is not appreciated, 23:00 Chest/axilla: Inspection: normal, Palpation: is normal, no crepitus, no tenderness, 23:00 Cardiovascular: Rate: normal, Rhythm: regular, 23:00 Respiratory: the patient does not display signs of respiratory distress, Respirations: normal, no use of accessory muscles, no retractions, labored breathing, is not present, Breath sounds: are clear throughout, no decreased breath sounds, no stridor, no wheezing, 23:00 Abdomen/GI: Inspection: abdomen appears normal, Palpation: abdomen is soft and non-tender, in all quadrants, 23:00 Back: baseball size hematoma noted right lower back with tenderness to palpation, 23:00 Musculoskeletal/extremity: Exam is negative for decreased range of motion, deformity, 23:00 Neuro: Orientation: no acute changes, per family, Mentation: no acute changes, per family, Motor: moves all fours, no focal deficits, 23:38 ECG was reviewed by the Attending Physician. Vital Signs: 22:20 BP 142 / 69; Pulse 83; Resp 18; Temp 98; Pulse Ox 96% on R/A; Weight 70 kg; Height 5 rg5 ft. 3 in. ; Pain 6/10; 23:30 BP 137 / 76; Pulse 79; Resp 18; Pulse Ox 96% on R/A; [facility] 08/13 00:35 BP 138 / 81; Pulse 91; Resp 18; Pulse Ox 95% on R/A; [facility] 08/12 22:20 Body Mass Index 27.34 (70.00 kg, 160.02 cm) [facility] 08/12 22:20 Pain Scale: Adult rg5 Gerton Coma Score: 08/12 22:22 Eye Response: spontaneous(4). Motor Response: obeys commands(6). Verbal Response: rg5 oriented(5). Total: 15. Trauma Score (Adult): 22:22 Eye Response: spontaneous(1); Verbal Response: oriented(1); Motor Response: obeys rg5 commands(2); Systolic BP: > 89 mm Hg(4); Respiratory Rate: 10 to 29 per min(4); Gerton Score: 15; Trauma Score: 12 MDM: 08/13 02:54 Medical Screening Exam initiated cp 02:55 Data reviewed: vital signs, nurses notes, lab test result(s), EKG, radiologic studies, cp CT scan, I have discussed the patient's presentation/case with the attending Emergency Department Physician; and as a result, I will admit patient. 02:55 Differential diagnosis: closed head injury, contusion, fracture, laceration, multiple cp trauma. Management of patient was discussed with the following: Primary Care Provider: DR Bauman who will admit after text sent. I considered the following discharge prescriptions or medication management in the emergency department Medications were administered in the Emergency Department. See MAR. Independent interpretation of the following test(s) in the Emergency Department EKG: See my EKG interpretation above. Care significantly affected by the following chronic conditions: Hypertension. Counseling: I had a detailed discussion with the patient and/or guardian regarding the historical points, exam findings, and any diagnostic results supporting the discharge/admit diagnosis, lab results, radiology results, the need for further work-up and treatment in the hospital. Response to treatment: the patient's symptoms have mildly improved after treatment. 08/12 22:49 Order name: Basic Metabolic Panel; Complete Time: 23:37 cp 08/12 23:37 Interpretation: Normal except: NA 134; K 3.1; CL 96; CO2 33; GLUC 119; CRE 1.20; GFR 47.cp 08/12 22:49 Order name: CBC with Diff; Complete Time: 23:37 cp 08/12 23:37 Interpretation: Normal except: RBC 2.95; HGB 9.5; HCT 27.6; MPV 7.3; EOSINOPHIL % 4.5. cp 08/12 22:49 Order name: Magnesium; Complete Time: 23:37 cp 08/12 22:49 Order name: PT-INR; Complete Time: 23:37 cp 08/12 22:49 Order name: Troponin HS; Complete Time: 23:37 cp 08/12 22:49 Order name: Ptt, Activated; Complete Time: 23:37 cp 08/13 02:14 Order name: UA Rfx Keanu Cult if indicated cp 08/13 03:09 Order name: Basic Metabolic Panel EDMS 08/13 03:09 Order name: Basic Metabolic Panel EDMS 08/13 03:09 Order name: CBC with Automated Diff EDMS 08/13 03:09 Order name: CBC with Automated Diff EDMS 08/12 23:55 Order name: Chest Abdomen Pelvis W Cont EDSC 08/12 23:55 Order name: Head C Spine Mpr Wo Con EDSC 08/12 22:49 Order name: EKG; Complete Time: 22:49 cp 08/12 22:49 Order name: Cardiac monitoring; Complete Time: 23:13 cp 08/12 22:49 Order name: EKG - Nurse/Tech; Complete Time: 23:36 cp 08/12 22:49 Order name: IV Saline Lock; Complete Time: 23:13 cp 08/12 22:49 Order name: Labs collected and sent; Complete Time: 23:13 cp 08/12 22:49 Order name: O2 Per Protocol; Complete Time: 23:13 cp 08/12 22:49 Order name: O2 Sat Monitoring; Complete Time: 23:13 cp 08/13 01:38 Order name: Little; Complete Time: 02:40 cp EC/17 23:38 Rate is 82 beats/min. Rhythm is regular. HI interval is normal. QRS interval is normal. cp QT interval is normal. T waves are Inverted in lead aVR. Interpreted by me. Reviewed by me. Administered Medications: 23:12 Drug: fentaNYL (PF) IVP 25 mcg IVP once Route: IVP; Site: right antecubital; rg5 23:41 Follow up: Response: No adverse reaction; Pain is decreased rg 08/13 00:15 Drug: Potassium PO Effervescent Tablet 50 mEq PO once; dissolve in 4 ounces of water or rg5 juice Route: PO; 00:56 Follow up: Response: No adverse reaction rg5 02:00 Drug: Dulcolax HI Suppository 10 mg HI once Route: HI; rg5 03:40 Follow up: Response: No adverse reaction rg5 02:00 Drug: Lactulose PO 30 grams 45 ml PO once Volume: 45 ml; Route: PO; rg5 03:40 Follow up: Response: No adverse reaction rg5 02:00 Drug: Dulcolax PO Delayed Release Tablet 5 mg PO once Route: PO; rg5 03:40 Follow up: Response: No adverse reaction rg5 Disposition: 06:38 Co-signature as Attending Physician, Renan Levy MD I reviewed the patient's care rt provided by the Advanced Practice Provider and agree with the diagnosis and treatment plan. 08/14 00:52 Chart complete. cp Disposition Summary: 08/13/24 02:54 Hospitalization Ordered Notes: Hospitalization Status: Observation cp Provider: Graham Bauman cp Condition: Stable cp Problem: new cp Symptoms: have improved cp Bed/Room Type: Standard cp Location: Telemetry/MedSurg (observation)(08/13/24 12:38) eb Room Assignment: 220(08/13/24 12:38) eb Diagnosis - Fall on same level from slipping, tripping and stumbling with subsequent striking cp against object - Fracture of fifth lumbar vertebra - subacute compression type cp - Fecal impaction cp - Constipation, unspecified cp - Hematoma of right low back cp - Retention of urine, unspecified cp - Hypokalemia cp Forms: - Medication Reconciliation Form cp - SBAR form cp - Leadership Thank You Letter cp Signatures: Dispatcher [employer] EDMS Shiva Crouch PA PA cp Ruth Feldman Ryan, MD MD rt Villegas, Rebecca 1 Clem Stephens RN RN rg5 Corrections: (The following items were deleted from the chart) 08/12 22:49 22:49 Head C Spine CAP W Con+CT.RAD.BRZ ordered. EDMS EDMS 08/13 02:14 02:14 UA Rfx Keanu Cult if indicated+U.LAB.BRZ ordered. EDMS EDMS 06:00 02:54 Telemetry/MedSurg (observation) cp rv1 06:00 02:54 cp rv1 12:38 06:00 [facility] ER HOLD rv1 eb 12:38 06:00 ERHOLD- rv1 eb 08/14 00:48 08/12 22:55 All other systems are negative, cp cp
--- NOTE | 2024-08-13 02:55 | ER ---
Nurse's Notes [facility] Name: Ethel Vazquez Age: 74 yrs Sex: Female : 1950 Arrival Date: 08/12/2024 Time: 22:17 Bed 16 Private MD: Diagnosis: Fall on same level from slipping, tripping and stumbling with subsequent striking against object;Fracture of fifth lumbar vertebra-subacute compression type;Fecal impaction;Constipation, unspecified;Hematoma of right low back;Retention of urine, unspecified;Hypokalemia Presentation: 08/12 22:17 Chief complaint: EMS states: pt fell down from the walker while she was on her way to [facility] her bed, she complaints of pain on the right side of her back, had an abrasion \T\ hematoma. 22:17 Coronavirus screen: Client denies travel out of the [place] in the last 14 days. Ebola rg5 Screen: Patient negative for fever greater than or equal to 101.5 degrees Fahrenheit, and additional compatible Ebola Virus Disease symptoms Patient denies exposure to infectious person. Patient denies travel to an Ebola-affected area in the 21 days before illness onset. Initial Sepsis Screen: Does the patient meet any 2 criteria? No. Patient's initial sepsis screen is negative. Does the patient have a suspected source of infection? No. Patient's initial sepsis screen is negative. Risk Assessment: Do you want to hurt yourself or someone else? Patient reports no desire to harm self or others. Onset of symptoms was August 12, 2024. 22:17 Method Of Arrival: EMS: [facility] rg5 22:17 Acuity: NETTIE 3 rg5 22:22 Care prior to arrival: None. rg5 22:22 Mechanism of Injury: Fall from standing position. Trauma event details: Injury occurred rg5 in the [facility]. Activity prior to arrival: None. Triage Assessment: 22:20 General: Appears in no apparent distress. uncomfortable, Behavior is calm, cooperative, rg5 appropriate for age. 22:20 Pain: Complains of pain in right mid back Quality of pain is described as aching. rg5 Historical: - Allergies: 22:48 No Known Allergies; rg5 - PMHx: 22:22 Hypertensive disorder; Anxiety; autism; rg5 - Immunization history:: Adult Immunizations unknown. - Infectious Disease History:: Denies. - Immunization history: Last tetanus immunization: unknown. - Social history:: Smoking status: Patient denies any tobacco usage or history of. Screenin:22 Abuse screen: Denies threats or abuse. Tuberculosis screening: No symptoms or risk rg5 factors identified. 22:22 [facility] ED Fall Risk Assessment (Adult) History of falling in the last 3 months, rg5 including since admission Yes- physiologic fall (2 pts) Confusion or Disorientation Yes (5 pts) Intoxicated or Sedated No (0 pts) Impaired Gait Yes (1 pt) Mobility Assist Device Used Yes (1 pt) Altered Elimination Score/Fall Risk Level 3 or more points = High Risk Oriented to surroundings, Maintained a safe environment, Provided non-skid footwear, Hourly rounding (assess needs \T\ fall precautionary measures) done. 22:22 Nutritional screening: No deficits noted. rg5 Primary Survey: 22:22 NO uncontrolled hemorrhage observed. rg5 22:22 A: The client is awake and alert. The airway is patent. Breathing/Chest: Spontaneous rg5 respiratory effort, equal unlabored respirations, breath sounds clear bilaterally, regular pattern, symmetrical chest rise and fall. Circulation: No external hemorrhage present. Regular and strong central pulse, skin warm/dry/normal color. Disability Pupils are equal, round, reactive to light and accommodation. Client is alert. Exposure/Environment: All clothing and personal items were removed. Forensic evidence collection is not deemed to be indicated at this time. Items placed in patient belonging bag. There is no evidence of uncontrolled external bleeding. 23:35 Reassessment Alertness and Airway: Awake and alert. The airway is patent. Breathing: rg5 Spontaneous respiratory effort, equal unlabored respirations, breath sounds clear bilaterally, regular pattern with symmetrical chest rise and fall. Circulation: No external hemorrhage noted. Regular and strong central pulse, skin warm/dry/normal color. Disability: Pupils Pupils are equal, round, reactive to light and accomodation. Alert. Assessment: 22:51 General: Appears in no apparent distress. Pain: Complains of pain in right mid back. rg5 Respiratory: Airway is patent Trachea midline Respiratory effort is even, unlabored. Vital Signs: 22:20 BP 142 / 69; Pulse 83; Resp 18; Temp 98; Pulse Ox 96% on R/A; Weight 70 kg; Height 5 rg5 ft. 3 in. ; Pain 6/10; 23:30 BP 137 / 76; Pulse 79; Resp 18; Pulse Ox 96% on R/A; rg5 08/13 00:35 BP 138 / 81; Pulse 91; Resp 18; Pulse Ox 95% on R/A; rg5 08/12 22:20 Body Mass Index 27.34 (70.00 kg, 160.02 cm) rg5 08/12 22:20 Pain Scale: Adult rg5 Chester Coma Score: 08/12 22:22 Eye Response: spontaneous(4). Motor Response: obeys commands(6). Verbal Response: rg5 oriented(5). Total: 15. Trauma Score (Adult): 22:22 Eye Response: spontaneous(1); Verbal Response: oriented(1); Motor Response: obeys rg5 commands(2); Systolic BP: > 89 mm Hg(4); Respiratory Rate: 10 to 29 per min(4); Chester Score: 15; Trauma Score: 12 ED Course: 22:20 Arm band placed on. rg5 22:22 Patient has correct armband on for positive identification. Bed in low position. Call rg5 light in reach. Side rails up X2. Adult w/ patient. Patient maintains SpO2 saturation greater than 95% on room air. 22:22 Door closed. Noise minimized. Warm blanket given. rg5 22:22 Inserted saline lock: 20 gauge in left antecubital area, using aseptic technique. Blood rg5 collected. Flushed with 10 mL NS. Patient maintains SpO2 saturation greater than 95% on room air. 22:22 No provider procedures requiring assistance completed. rg5 22:37 Patient arrived in ED. rv1 22:43 Clem Stephens, SORAYA is Primary Nurse. rg5 22:48 Shiva Crouch PA is PHCP. cp 22:48 Renan Levy MD is Attending Physician. cp 22:48 Triage completed. rg5 08/13 00:05 Chest Abdomen Pelvis W Cont In Process Unspecified. EDMS 00:05 Head C Spine Mpr Wo Con In Process Unspecified. EDMS 02:50 Graham Bauman MD is Hospitalizing Provider. cp 03:06 Patient admitted, IV remains in place. intact, No redness/swelling at site. rg5 03:06 Little cath inserted, using sterile technique, 14 Fr., by ED staff, balloon inflated, to rg5 gravity drainage, urine specimen collected. returned clear yellow urine. Patient tolerated well. 800ml. 03:10 UA Rfx Keanu Cult if indicated Sent. hw Administered Medications: 08/12 23:12 Drug: fentaNYL (PF) IVP 25 mcg IVP once Route: IVP; Site: right antecubital; rg5 23:41 Follow up: Response: No adverse reaction; Pain is decreased rg5 08/13 00:15 Drug: Potassium PO Effervescent Tablet 50 mEq PO once; dissolve in 4 ounces of water or rg5 juice Route: PO; 00:56 Follow up: Response: No adverse reaction rg5 02:00 Drug: Dulcolax KS Suppository 10 mg KS once Route: KS; rg5 03:40 Follow up: Response: No adverse reaction rg5 02:00 Drug: Lactulose PO 30 grams 45 ml PO once Volume: 45 ml; Route: PO; rg5 03:40 Follow up: Response: No adverse reaction rg5 02:00 Drug: Dulcolax PO Delayed Release Tablet 5 mg PO once Route: PO; rg5 03:40 Follow up: Response: No adverse reaction rg5 Medication: 03:06 VIS not applicable for this client. rg5 Intake: 08/12 22:22 PO: 0ml; Total: 0ml. rg5 Outcome: 08/13 02:54 Decision to Hospitalize by Provider. cp 03:05 Admitted to ER Hold. Please see [facility] for further documentation. rg5 03:05 Condition: stable 03:05 Instructed on the need for admit, 14:02 Patient left the ED. mb9 Signatures: Dispatcher [employer] EDMS Shiva Crouch PA PA cp Wilkerson, Mary Beth RN RN mb9 Carole Nava rv1 Clem Stephens RN RN rg5 Yana Monahan Corrections: (The following items were deleted from the chart) 04:01 08/12 22:20 BP 142 / 69; Pulse 83bpm; Resp 18bpm; Pulse Ox 96% RA; Temp 98F; 61.23 kg; rg5 Height 5 ft. 3 in.; BMI: 23.9; Pain 6/10, Adult; rg5
[2024-08-13] MEDS ORDERED: MORPHINE 2 MG/ML SYR IV PRN (03:03)
[2024-08-13] MEDS ORDERED: ONDANSETRON 4 MG/2 ML VIAL IV PRN (03:03)
[2024-08-13] MEDS: FLEET ENEMA ADULT PR ONE (03:05)
[2024-08-13] MEDS ORDERED: BISACODYL E.C. 5 MG TAB PO PRN (03:07)
[2024-08-13 03:24] LABS: Specific Gravity 1.013 (1.005-1.030); Urine Bilirubin NEGATIVE (Negative); Urine Blood Negative (Negative); Urine Clarity Clear (Clear); Urine Color Colorless (Yellow); Urine Glucose NEGATIVE (Negative); Urine Ketones NEGATIVE (Negative); Urine Microscopic Reflex YN NO UMIC; Urine Nitrite NEGATIVE (Negative); Urine Protein NEGATIVE (Negative); Urine Urobilinogen Normal (Normal)
[2024-08-13] MEDS: NA CHLORIDE 0.9% 1,000 ML IV SCH (04:00)
[2024-08-13] MEDS ORDERED: NA CHLORIDE 0.9% 1,000 ML ONE (04:31)
[2024-08-13 04:33] VITALS: BMI 27.3
--- NOTE | 2024-08-13 11:27 | P.HP ---
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 SHE LIVES AT [facility]. SHE FELL BACKWARD AND HIT HER DRESSER. IN ER SHE WAS FOUND TO HAVE CONSTIPATION AND HYDRONEPHROSIS FROM BLADDER OUTLET OBST. MOST LIKELY FROM SEVERE CONSTIPATION. Allergies No Known Allergies Allergy (Verified 10/21/22 09:45) Home medications list reviewed: Yes Home Medications: Meclizine HCl 25 mg PO TID PRN 06/18/20 Rosuvastatin [Crestor*] 10 mg PO DAILY 06/18/20 Potassium Oral Tab [Klor-Con 10 mEq Tab*] 10 meq PO DAILY #90 tab 06/22/20 Aripiprazole [Abilify] 5 mg PO BEDTIME 11/11/23 Trazodone HCl 50 mg PO BEDTIME 11/11/23 - Past Medical/Surgical History Has patient received pneumonia vaccine in the past: Yes Diabetic: No -: Autism -: Vertigo -: HTN -: Dementia -: hysterectomy -: hernia -: R Leg fracture repair - Social History Smoking Status: Never smoker Alcohol use: No CD- Drugs: No Caffeine use: No Review of Systems 10-point ROS is otherwise unremarkable General: Weakness, As per HPI Neurological: Confusion (AT BASELINE. ) Physical Examination - Vital Signs Temperature: 98 F Blood Pressure: 123/69 Pulse: 98 Respirations: 16 Pulse Ox (%): 95 - Physical Exam General: Cooperative, Moderate distress, Confused HEENT: Atraumatic, PERRLA, Mucous membr. moist/pink, EOMI, Sclerae nonicteric Neck: Supple, 2+ carotid pulse no bruit, No LAD, Without JVD or thyroid abnormality Respiratory: Clear to auscultation bilaterally, Normal air movement Cardiovascular: Regular rate/rhythm, Normal S1 S2 Gastrointestinal: Normal bowel sounds, No tenderness Musculoskeletal: No tenderness Integumentary: No rashes Neurological: Normal gait, Normal speech, Normal strength at 5/5 x4 extr, Normal tone, Normal affect Lymphatics: No axilla or inguinal lymphadenopathy - Studies Laboratory Data (last 24 hrs) 08/12/24 08/12/24 08/12/24 23:00 23:00 23:00 WBC 6.40 Hgb 9.5 L Hct 27.6 L Plt Count 283 PT 11.5 INR 1.01 APTT 27.2 Sodium 134 L Potassium 3.1 L BUN 18 Creatinine 1.20 H Glucose 119 H Magnesium 1.7 Assessment and Plan - Problems (Diagnosis) (1) Fracture of lumbar spine Current Visit: Yes Status: Acute Plan: SP FALL WILL NEED PT. CONSULT PT PAIN CONTROL AVOID NARCOTICS TO CONSTIPATE HER. STOP MORPHINE WRITTEN BY ER (2) Constipation Current Visit: Yes Status: Acute Plan: ENEMA PRN. CHRONIC USE MIRALAX DAILY. (3) Hydronephrosis Current Visit: Yes Status: Acute Plan: SHOULD IMPROVE WITH DE LA TORRE AND CONSTIPATION TREATMENT. - Advance Directives Does patient have a Living Will: No Does patient have a Durable POA for Healthcare: No
[2024-08-13] MEDS: PROPRANOLOL HCL 10 MG TAB PO SCH (21:04)
[2024-08-13] MEDS: ARIPiprazole 5 MG TAB PO SCH (21:04)
[2024-08-13] MEDS: TRAZODONE 50 MG TABLET PO SCH (21:04)
[2024-08-13] MEDS: MECLIZINE HCL 12.5 MG TAB PO SCH (21:05)
[2024-08-14 05:52] LABS: Absolute Eosinophils 0.3 K/uL (0-0.5); Absolute Lymphocytes (CBC) 0.6 K/uL (0.7-4.9); Absolute Monocytes 0.6 K/uL (0.1-1.3); Absolute Neutrophil 4.7 K/uL (1.8-8.0); Basophils % 0.6 % (0-1.3); Eosinophils % 5.2 % (0-4.4); Hematocrit 25.2 % (36.0-45.0); Hemoglobin 8.6 g/dL (12.0-15.0); Lymphocytes % 9.8 % (15.3-44.8); MCH 31.8 pg (27.0-35.0); MCV 93.6 fL (80-100); MPV 7.2 fL (7.6-11.3); Neutrophils % 75.4 % (41.7-73.7); Platelets 272 thou/uL (152-406); RBC Red Blood Cell Count 2.69 M/uL (3.86-4.86); Red Cell Distribution Width 15.2 % (12.1-15.2)
[2024-08-14 08:25] LABS: Ferritin 278.3 ng/mL (8-252)
[2024-08-14] MEDS: ROSUVASTATIN 10 MG TAB PO SCH (09:30)
[2024-08-14] MEDS: POTASSIUM CL SA 10 MEQ TAB PO SCH (09:31)
--- NOTE | 2024-08-14 12:55 | P.PN ---
Subjective Date of Service: 08/14/24 Chief Complaint: FALLEN AND HIT THE DRESSER Subjective: Improving SHE IS LOT BETTER. SHE DID PT AND WALKED ABOUT 30 FEET. SHE HAD LARGE BM YEST. Review of Systems 10-point ROS is otherwise unremarkable General: Weakness, As per HPI Physical Examination - Vital Signs Temperature: 98.2 F Blood Pressure: 107/63 Pulse: 67 Respirations: 20 Pulse Ox (%): 92 - Physical Exam General: Oriented x1, Mild distress, Confused HEENT: Atraumatic, PERRLA, EOMI Neck: Supple, JVD not distended Respiratory: Clear to auscultation bilaterally, Normal air movement Cardiovascular: Regular rate/rhythm, Normal S1 S2 Gastrointestinal: Normal bowel sounds, No tenderness Musculoskeletal: No tenderness Integumentary: No rashes Neurological: Normal speech, Normal tone, Normal affect Lymphatics: No axilla or inguinal lymphadenopathy - Studies Medications List Reviewed: Yes Assessment And Plan - Current Problems (Diagnosis) (1) Fracture of lumbar spine Current Visit: Yes Status: Acute Plan: SP FALL WILL NEED PT. CONSULT PT PAIN CONTROL AVOID NARCOTICS TO CONSTIPATE HER. STOP MORPHINE WRITTEN BY ER (2) Constipation Current Visit: Yes Status: Acute Plan: ENEMA PRN. CHRONIC USE MIRALAX DAILY. (3) Hydronephrosis Current Visit: Yes Status: Acute Plan: SHOULD IMPROVE WITH DE LA TORRE AND CONSTIPATION TREATMENT. REDO SONOGRAM TODAY SHE HAS HAD LARGE BM AND HAS DE LA TORRE. (4) Hypokalemia Current Visit: Yes Status: Acute Plan: REPLACE K.
--- NOTE | 2024-08-14 15:16 | RAD REPORT ---
EXAMINATION: US RETROPERITONEUM, US urinary bladder CLINICAL INDICATION: [facility] MAIN CKD. CHECK FOR POST VOID RESIDUAL. AFTER DE LA TORRE REM CHECK FOR HYDRONEPHROSIS FU. TECHNIQUE: Real-time ultrasonography of the kidneys and bladder was performed. COMPARISON: CT abdomen and pelvis 11/11/2023 FINDINGS: RIGHT KIDNEY: Right renal length measurement: 9.9 cm. Normal in echogenicity and size. No calculus, o r solid mass. Mild hydronephrosis. LEFT KIDNEY: Left renal length measurement: 9.3 cm. Normal in echogenicity and size. No calculus, or solid mass. Mild hydronephrosis with some calyceal prominence. URINARY BLADDER: Suboptimally distended, with volume measuring 24 mL. Reportedly, De La Torre catheter was removed 45 minutes prior to the exam. Patient was unable to effectively void. ADDITIONAL FINDINGS: None. IMPRESSION: Mild bilateral hydronephrosis more pronounced on the left. Suboptimal inflation of the bladder, limits evaluation for post void residual.
--- NOTE | 2024-08-14 15:16 | RAD REPORT ---
EXAMINATION: US RETROPERITONEUM, US urinary bladder CLINICAL INDICATION: [facility] MAIN CKD. CHECK FOR POST VOID RESIDUAL. AFTER DE LA TORRE REM CHECK FOR HYDRONEPHROSIS FU. TECHNIQUE: Real-time ultrasonography of the kidneys and bladder was performed. COMPARISON: CT abdomen and pelvis 11/11/2023 FINDINGS: RIGHT KIDNEY: Right renal length measurement: 9.9 cm. Normal in echogenicity and size. No calculus, o r solid mass. Mild hydronephrosis. LEFT KIDNEY: Left renal length measurement: 9.3 cm. Normal in echogenicity and size. No calculus, or solid mass. Mild hydronephrosis with some calyceal prominence. URINARY BLADDER: Suboptimally distended, with volume measuring 24 mL. Reportedly, De La Torre catheter was removed 45 minutes prior to the exam. Patient was unable to effectively void. ADDITIONAL FINDINGS: None. IMPRESSION: Mild bilateral hydronephrosis more pronounced on the left. Suboptimal inflation of the bladder, limits evaluation for post void residual.
[2024-08-15 04:45] LABS: Absolute Eosinophils 0.3 K/uL (0-0.5); Absolute Lymphocytes (CBC) 0.7 K/uL (0.7-4.9); Absolute Monocytes 0.6 K/uL (0.1-1.3); Absolute Neutrophil 4.5 K/uL (1.8-8.0); Basophils % 0.8 % (0-1.3); Lymphocytes % 10.9 % (15.3-44.8); MCH 32.5 pg (27.0-35.0); MCHC 34.5 g/dL (32.0-36.0); MCV 94.1 fL (80-100); MPV 7.7 fL (7.6-11.3); Monocytes % 10.3 % (3.3-12.3); Platelets 244 thou/uL (152-406); RBC Red Blood Cell Count 2.76 M/uL (3.86-4.86); Red Cell Distribution Width 15.2 % (12.1-15.2)
[2024-08-15 05:04] LABS: Anion Gap 9.6 mEq/L (5.0-15.0); Potassium 3.6 mEq/L (3.5-5.1)
--- NOTE | 2024-08-15 11:55 | P.PN ---
Subjective Date of Service: 08/15/24 Chief Complaint: FALLEN AND HIT THE DRESSER Subjective: Improving SHE IS LOT BETTER. SHE DID PT AND WALKED ABOUT 30 FEET. SHE HAD LARGE BM YEST. GEN WEAK VERY CONFUSED, NORMAL FOR HER. NEEDS PT. HER SEE SUPERVISOR IS SICK. WILL KEEP HER ONE MORE DAY TO GET PT AND DECIDE STABILITY AT ASSISTED LIVING. Review of Systems 10-point ROS is otherwise unremarkable General: Weakness, As per HPI Neurological: Confusion Physical Examination - Vital Signs Temperature: 97.4 F Blood Pressure: 111/68 Pulse: 68 Respirations: 20 Pulse Ox (%): 91 - Physical Exam General: Oriented x1, Mild distress, Moderate distress, Confused HEENT: Atraumatic, PERRLA, EOMI Neck: Supple, JVD not distended Respiratory: Clear to auscultation bilaterally, Normal air movement Cardiovascular: Regular rate/rhythm, Normal S1 S2 Gastrointestinal: Normal bowel sounds, No tenderness Musculoskeletal: No tenderness Integumentary: No rashes Neurological: Normal speech, Normal tone, Normal affect, Abnormal strength (GEN WEAK.), Dementia Lymphatics: No axilla or inguinal lymphadenopathy - Studies Medications List Reviewed: Yes Assessment And Plan - Current Problems (Diagnosis) (1) Fracture of lumbar spine Current Visit: Yes Status: Acute Plan: SP FALL WILL NEED PT. CONSULT PT PAIN CONTROL AVOID NARCOTICS TO CONSTIPATE HER. STOP MORPHINE WRITTEN BY ER NO PAIN CONT PT. (2) Constipation Current Visit: Yes Status: Acute Plan: ENEMA PRN. CHRONIC USE MIRALAX DAILY. (3) Hydronephrosis Current Visit: Yes Status: Acute Plan: SHOULD IMPROVE WITH DE LA TORRE AND CONSTIPATION TREATMENT. REDO SONOGRAM TODAY SHE HAS HAD LARGE BM AND HAS DE LA TORRE. RESOLVING WITH RELIEF OF CONSTIPATION. (4) Hypokalemia Current Visit: Yes Status: Acute Plan: REPLACE KCandace
[2024-08-16 07:25] LABS: Absolute Eosinophils 0.1 K/uL (0-0.5); Absolute Lymphocytes (CBC) 0.5 K/uL (0.7-4.9); Absolute Monocytes 0.7 K/uL (0.1-1.3); Absolute Neutrophil 3.4 K/uL (1.8-8.0); Basophils % 0.7 % (0-1.3); Eosinophils % 1.1 % (0-4.4); Hematocrit 27.1 % (36.0-45.0); Hemoglobin 9.1 g/dL (12.0-15.0); Lymphocytes % 10.7 % (15.3-44.8); MCH 31.8 pg (27.0-35.0); MCHC 33.5 g/dL (32.0-36.0); MCV 94.8 fL (80-100); MPV 7.2 fL (7.6-11.3); Monocytes % 15.3 % (3.3-12.3); Neutrophils % 72.2 % (41.7-73.7); Platelets 246 thou/uL (152-406); RBC Red Blood Cell Count 2.86 M/uL (3.86-4.86); Red Cell Distribution Width 15.6 % (12.1-15.2)
[2024-08-16] MEDS ORDERED: MECLIZINE HCL 12.5 MG TAB PO PRN (10:03)
--- NOTE | 2024-08-16 13:07 | P.PN ---
Subjective Date of Service: 08/16/24 Chief Complaint: FALLEN AND HIT THE DRESSER Subjective: Improving SHE IS LOT BETTER. SHE DID PT AND WALKED ABOUT 30 FEET. SHE HAD LARGE BM YEST. GEN WEAK VERY CONFUSED, NORMAL FOR HER. NEEDS PT. HER ASTRONOMY PROFESSOR IS SICK. WILL KEEP HER ONE MORE DAY TO GET PT AND DECIDE STABILITY AT ASSISTED LIVING. SHE HAS BEEN APPROVED FOR [facility] TO GO IN AM AFTER 3 MIDNIGHTS. SHE IS STABLE AND CONFUSED USUAL. Review of Systems 10-point ROS is otherwise unremarkable General: Weakness Physical Examination - Vital Signs Temperature: 97.9 F Blood Pressure: 100/59 Pulse: 68 Respirations: 18 Pulse Ox (%): 96 - Physical Exam General: Mild distress, Confused HEENT: Atraumatic, PERRLA, EOMI Neck: Supple, JVD not distended Respiratory: Clear to auscultation bilaterally, Normal air movement Cardiovascular: Regular rate/rhythm, Normal S1 S2 Gastrointestinal: Normal bowel sounds, No tenderness Musculoskeletal: No tenderness Integumentary: No rashes Neurological: Normal speech, Normal tone, Normal affect Lymphatics: No axilla or inguinal lymphadenopathy - Studies Medications List Reviewed: Yes Assessment And Plan - Current Problems (Diagnosis) (1) Fracture of lumbar spine Current Visit: Yes Status: Acute Plan: SP FALL WILL NEED PT. CONSULT PT PAIN CONTROL AVOID NARCOTICS TO CONSTIPATE HER. STOP MORPHINE WRITTEN BY ER NO PAIN CONT PT. (2) Constipation Current Visit: Yes Status: Acute Plan: ENEMA PRN. CHRONIC USE MIRALAX DAILY. (3) Hydronephrosis Current Visit: Yes Status: Acute Plan: SHOULD IMPROVE WITH DE LA TORRE AND CONSTIPATION TREATMENT. REDO SONOGRAM TODAY SHE HAS HAD LARGE BM AND HAS DE LA TORRE. RESOLVING WITH RELIEF OF CONSTIPATION. (4) Hypokalemia Current Visit: Yes Status: Acute Plan: REPLACE K. (5) Alzheimer disease Current Visit: Yes Status: Chronic Plan: MOD CONFUSION. CUPOLA TENDER. WILL START HER ON [place].
[2024-08-16] MEDS: MEMANTINE HCL 10 MG TABLET PO SCH (21:40)
[2024-08-16 22:54] VITALS: O2SAT 98
[2024-08-17 04:58] LABS: Abnormal Protein Band 1 REPORT; Alpha-1-Globulins 0.3 g/dL (0.2-0.3); Alpha-2-Globulins 0.6 g/dL (0.5-0.9); Beta 1 Globulin 0.4 g/dL (0.4-0.6); Gamma Globulins 0.7 g/dL (0.8-1.7); INTERPRETATION REPORT; Total Protein 5.4 g/dL (6.1-8.1)
[2024-08-17 06:15] LABS: Absolute Eosinophils 0.2 K/uL (0-0.5); Absolute Lymphocytes (CBC) 0.9 K/uL (0.7-4.9); Absolute Monocytes 0.6 K/uL (0.1-1.3); Absolute Neutrophil 1.9 K/uL (1.8-8.0); Basophils % 0.8 % (0-1.3); Eosinophils % 6.1 % (0-4.4); Hematocrit 27.4 % (36.0-45.0); Hemoglobin 9.1 g/dL (12.0-15.0); Lymphocytes % 23.9 % (15.3-44.8); MCH 31.3 pg (27.0-35.0); MCHC 33.1 g/dL (32.0-36.0); MCV 94.6 fL (80-100); MPV 7.3 fL (7.6-11.3); Monocytes % 16.7 % (3.3-12.3); Neutrophils % 52.5 % (41.7-73.7); Nucleated Red Blood Cells % 0.1 % (0-0); Platelets 259 thou/uL (152-406); RBC Red Blood Cell Count 2.89 M/uL (3.86-4.86); Red Cell Distribution Width 15.4 % (12.1-15.2)
[2024-08-17 06:33] LABS: Anion Gap 7.9 mEq/L (5.0-15.0); Potassium 3.9 mEq/L (3.5-5.1)
[2024-08-17 09:00] VITALS: BP 124/68; TEMP 98.2
--- NOTE | 2024-08-17 21:13 | P.DS ---
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 SHE LIVES AT [facility]. SHE FELL BACKWARD AND HIT HER DRESSER. IN ER SHE WAS FOUND TO HAVE CONSTIPATION AND HYDRONEPHROSIS FROM BLADDER OUTLET OBST. MOST LIKELY FROM SEVERE CONSTIPATION. Hospital Course: JOYCE HAS HAD SEVERE CONSTIPATION WITH RETENTION OF URINE AND HYDRONEPHROSIS. SHE IMPROVED WITH ENEMAS AND THE HYDRONEPHROSIS ALSO RESOLVED TO A GREAT EXTENT. SHE IS WEAK AND WILL GO TO SNF BEFORE SHE RETURNS TO [facility]. Vital Signs/Physical Exam: Temp Pulse Resp BP Pulse Ox 98.2 F 79 16 124/68 97 08/17/24 08:00 08/17/24 08:00 08/17/24 08:00 08/17/24 08:00 08/17/24 08:00 Laboratory Data at Discharge: WBC 3.70 thou/uL (4.3-10.9) L 08/17/24 05:47 Hgb 9.1 g/dL (12.0-15.0) L 08/17/24 05:47 Hct 27.4 % (36.0-45.0) L 08/17/24 05:47 Plt Count 259 thou/uL (152-406) 08/17/24 05:47 PT 11.5 SECONDS (10-13.0) 08/12/24 23:00 INR 1.01 08/12/24 23:00 APTT 27.2 SECONDS (27.2-37.4) 08/12/24 23:00 Sodium 134 mEq/L (136-145) L 08/17/24 05:47 Potassium 3.9 mEq/L (3.5-5.1) 08/17/24 05:47 BUN 13 mg/dL (7-18) 08/17/24 05:47 Creatinine 0.71 mg/dL (0.55-1.02) 08/17/24 05:47 Glucose 93 mg/dL (74-106) 08/17/24 05:47 Magnesium 1.7 mg/dL (1.6-2.4) 08/12/24 23:00 Home Medications: Meclizine HCl 25 mg PO TID 06/18/20 Rosuvastatin [Crestor*] 10 mg PO DAILY 06/18/20 Potassium Oral Tab [Klor-Con 10 mEq Tab*] 10 meq PO DAILY #90 tab 06/22/20 Aripiprazole [Abilify] 5 mg PO BEDTIME 11/11/23 Trazodone HCl 50 mg PO BEDTIME 11/11/23 Indapamide [Lozol] 1 tab PO DAILY 08/13/24 Propranolol [Inderal*] 10 mg PO BID 08/13/24 Memantine HCl [Namenda*] 5 mg PO BID 08/17/24 Followup: Graham Bauman MD [Primary Care Provider] - 1-2 Weeks
[2024-08-19 19:33] LABS: Celiac Interpretation REPORT; Immunoglobulin A 555 mg/dL (70-320); Tissue Transglutaminase IgA Ab <1.0 U/mL (<15.0)
--- NOTE | 2024-08-22 12:56 | EKG ---
Test Date: 2024-08-12 Test Time: 23:32:27 Grades 1 Thru 6 Visiting Teacher: JENNA MEASUREMENT RESULTS: Intervals: Rate: 82 AR: 170 QRSD: 94 QT: 380 QTc: 443 [place]: P: 60 AR: 170 QRS: -61 T: 64 INTERPRETIVE STATEMENTS: Normal sinus rhythm Left anterior fascicular block Cannot rule out Anterior infarct, age undetermined Abnormal ECG Compared to ECG 09/04/2022 09:55:30 Left anterior fascicular block now present Left-axis deviation no longer present Myocardial infarct finding still present Electronically Signed On 08-22-24 12:35:49 CDT by Herber Cerda
== END 2024-08-17 11:34 | DRG 552 ==
LOC: ER 22:17 → ERHOLD 08-13 03:01 → 2ND 08-13 12:54 → OBSVTOIN 08-14 12:53
PROVIDERS: ADMIT Internal Medicine; ATTEND Internal Medicine
PROC: 0T9B70Z Drainage of Bladder with Drainage Device, Via Natural or Artificial Opening (ICD-10-PCS; principal; 2024-08-13)
DX: S32.059A Unspecified fracture of fifth lumbar vertebra, initial encounter for closed fracture (principal); F84.0 Autistic disorder; N13.30 Unspecified hydronephrosis; L89.312 Pressure ulcer of right buttock, stage 2; E87.6 Hypokalemia; K56.41 Fecal impaction; I10 Essential (primary) hypertension; S30.0XXA Contusion of lower back and pelvis, initial encounter; G30.9 Alzheimer's disease, unspecified; F02.80 Dementia in other diseases classified elsewhere, unspecified severity, without behavioral disturbance, psychotic disturbance, mood disturbance, and anxiety; R33.9 Retention of urine, unspecified; Z79.899 Other long term (current) drug therapy; W18.30XA Fall on same level, unspecified, initial encounter; Y93.01 Activity, walking, marching and hiking; Y99.9 Unspecified external cause status; Y92.099 Unspecified place in other non-institutional residence as the place of occurrence of the external cause
CPT/HCPCS: 36415; 51702; 70450; 71260; 72125; 74177; 76770; 76857; 80048; 81003; 82607; 82728; 82784; 83540; 83735; 84165; 84466; 84484; 85025; 85610; 85730; 86364; 93005; 96374; 97116; 97161; 97530; 99285; G0378; J3010; J7030; J8597; Q9967